=== PATIENT | female | born 1975 | race Caucasian/White ===

== ENCOUNTER 2023-08-01 12:29 | Emergency (ER) | payer MEDICAID ==
[~2023-08-01] VITALS: Ht 162.6 cm; Wt 74.4 kg
[2023-08-01] MEDS ORDERED: NABU-140 PO (14:05)
[2023-08-01] MEDS ORDERED: HYDR-3980 PO (14:05)
[2023-08-01 14:17] VITALS: BP 126/79; O2SAT 99
== END 2023-08-01 14:18 | disposition home or self-care (01) ==
LOC: ER 12:31
DX: S62.101A Fracture of unspecified carpal bone, right wrist, initial encounter for closed fracture (principal); S63.692A Other sprain of right middle finger, initial encounter; S16.1XXA Strain of muscle, fascia and tendon at neck level, initial encounter; X58.XXXA Exposure to other specified factors, initial encounter; Y93.89 Activity, other specified; Y92.89 Other specified places as the place of occurrence of the external cause; Y99.8 Other external cause status
CPT/HCPCS: 72125; 73110; 73140; A4606; A4663